=== PATIENT | male | born 1970 | race Caucasian/White ===

== ENCOUNTER → 2016-10-18 | Outpatient (CLI) | payer OTHER ==
[~2016-10-18] MED LIST: CONRAY-43 43% 50ML VIAL (Q9960) As Ordered ONE; LIDOCAINE 1% MDV 20ML VIAL As Ordered ONE; TRIAMCINOLONE ACETONIDE SUSP 40 MG/ML VIAL (J3301) As Ordered ONE
--- NOTE | 2016-10-18 12:29 | REP ---
RIGHT HIP INJECTION: The procedure was performed under the direct supervision of Dr. Espinoza. The benefits and risks including, but not limited to pain, infection, bleeding, and anaphylaxis were explained to the patient and informed consent was obtained. The right femoral neck was localized using fluoroscopic guidance. The skin was prepped and draped in a sterile fashion. 1% lidocaine was used as a local anesthetic. Using fluoroscopic guidance a 22 gauge spinal needle was inserted and advanced to the femoral neck. 0.5 mL of Conray 43 was injected to verify placement. 10 mL of a solution containing 9 mL of 1% lidocaine and 1 mL of Kenalog 40 mg was injected. The patient tolerated the procedure well and there were no immediate complications. 2 seconds of fluoroscopy time was utilized for this procedure. Reviewed by SANDRINE Smith 10/18/2016 12:55 PEdited and Signed by Tommy Espinoza MD 10/18/2016 03:29 P
== END ==
LOC: M RADPRO 10:12
PROVIDERS: ATTEND Physician Assistant Medical
DX: M25.551 Pain in right hip (principal)
CPT/HCPCS: 20610; 77002; J3301; Q9960

== ENCOUNTER → 2022-11-11 | Outpatient (CLI) | payer OTHER | LOC: M PLARAD 10:06 | PROVIDERS: ATTEND Podiatrist Foot & Ankle Surgery | DX: S93.401D Sprain of unspecified ligament of right ankle, subsequent encounter (principal); M76.71 Peroneal tendinitis, right leg; Y93.9 Activity, unspecified; Y92.9 Unspecified place or not applicable ==

== ENCOUNTER 2023-01-11 07:01 | Day surgery (SDC) | payer SELFPAY ==
[~2023-01-11] VITALS: Ht 172.7 cm; Wt 92.3 kg
[~2023-01-11 07:01] MED LIST changes: +ASPI81TA26 PO; +ATOR40TA75 PO; +BUTA-198 PO; -CONRAY-43 43% 50ML VIAL (Q9960) As Ordered ONE; +CYCL-707 PO; -LIDOCAINE 1% MDV 20ML VIAL As Ordered ONE; +METO1TAB87 PO; +OMEP-173 PO; -TRIAMCINOLONE ACETONIDE SUSP 40 MG/ML VIAL (J3301) As Ordered ONE; +ceFAZolin SOD 2 GM in IV 1 EA IV ONE
[2023-01-11] MEDS ORDERED: LR 1,000 ML IV SCH (07:05)
[2023-01-11] MEDS ORDERED: ONDANSETRON 4MG 2ML VIAL As Ordered ONE (07:53)
[2023-01-11] MEDS ORDERED: KETOROLAC 60MG 2ML VIAL As Ordered ONE (07:53)
[2023-01-11] MEDS ORDERED: propofoL 200 MG/20 ML VIAL As Ordered ONE ×3 (07:53→09:53)
[2023-01-11] MEDS ORDERED: LIDOCAINE 2% 100MG/5ML SDV (FOR ANES.) As Ordered ONE (07:53)
[2023-01-11] MEDS ORDERED: fentaNYL 100 MCG/2 ML INJECTION As Ordered ONE (08:00)
[2023-01-11] MEDS ORDERED: MIDAZOLAM INJ 2MG/2ML VIAL As Ordered ONE (08:01)
[2023-01-11] MEDS ORDERED: SCOPOLAMINE 1MG TRANSDERMAL PATCH TOP ONE (08:05)
[2023-01-11] MEDS ORDERED: LIDOCAINE 1% MDV 20ML VIAL As Ordered ONE (08:46)
[2023-01-11] MEDS ORDERED: HYDR-3713 PO (08:58)
[2023-01-11] MEDS ORDERED: ceFAZolin SOD 1 GM in D5W MINI-BAG PLUS 50 ML IV ONE (09:05)
[2023-01-11] MEDS ORDERED: ACETAMINOPHEN 1000MG 100ML IV BAG As Ordered ONE (09:10)
[2023-01-11 11:52] VITALS: BP 128/78; TEMP 97; O2SAT 96
== END 2023-01-11 11:52 | disposition home or self-care (01) ==
LOC: M SDC 07:01
PROVIDERS: ATTEND Podiatrist Foot & Ankle Surgery
DX: S93.491A Sprain of other ligament of right ankle, initial encounter (principal); X50.1XXA Overexertion from prolonged static or awkward postures, initial encounter; Y92.89 Other specified places as the place of occurrence of the external cause; I25.2 Old myocardial infarction; I10 Essential (primary) hypertension; Z95.5 Presence of coronary angioplasty implant and graft; E78.00 Pure hypercholesterolemia, unspecified; M19.90 Unspecified osteoarthritis, unspecified site; G43.909 Migraine, unspecified, not intractable, without status migrainosus; G47.30 Sleep apnea, unspecified; Z87.891 Personal history of nicotine dependence; Z79.899 Other long term (current) drug therapy; Z79.82 Long term (current) use of aspirin
CPT/HCPCS: 27698; 97116; C1713; J0131; J0690; J1100; J1885; J2250; J2405; J3010; S0020

== ENCOUNTER → 2023-10-16 | Outpatient (CLI) | payer OTHER ==
[~2023-10-16] MED LIST changes: +HYDR-3713 PO; -ceFAZolin SOD 2 GM in IV 1 EA IV ONE
== END ==
LOC: M CARPUL 07:46
PROVIDERS: ATTEND Internal Medicine
DX: R05.9 Cough, unspecified (principal); Z87.891 Personal history of nicotine dependence

== ENCOUNTER → 2023-10-24 | Outpatient (CLI) | payer OTHER | LOC: M RAD 16:14 | PROVIDERS: ATTEND Internal Medicine | DX: Z72.0 Tobacco use (principal) ==